=== PATIENT | male | born 1990 | race Caucasian/White ===

== ENCOUNTER → 2018-10-13 | Outpatient (CLI) | payer OTHER ==
--- NOTE | 2018-10-13 17:10 | RADIOLOGY IMAGING REPORT ---
FACILITY: [facility] PATIENT NAME: Willis Tirado : 1990 MR: [id number] V: [id number] EXAM DATE: ORDERING PHYSICIAN: FIDELIA ANTONIO TECHNOLOGIST: Location: [facility] [place] Patient: Willis Tirado : 1990 Visit/Account:[id number] Date of Sevice: 10/13/2018 THYROID HISTORY: Left thyroid nodule COMPARISON: None. FINDINGS: SIZE: Right lobe: 4.8 x 1.6 x 1.7 cm Left lobe: 5.1 x 1.6 x 1.6 cm Isthmus: 5 mm PARENCHYMA: Homogeneous. NODULES: Right lobe: * None discrete. Left lobe: * There is a well-circumscribed hypoechoic nodule in the mid to inferior left lobe measuring 1.3 x 0 .9 x 2 cm. There suggestion of tiny calcifications within this nodule Isthmus: * None discrete. VASCULARITY: Within normal limits. ADDITIONAL FINDINGS: None. IMPRESSION: There is a 2 cm hypoechoic nodule within the inferior left lobe which appears to contain punctate emilia cifications. Ultrasound-guided fine-needle aspiration is recommended REFERENCE: 2015 [place] [employer] Management Guidelines for Adult Patients with Thyroid Nodules and D ifferentiated Thyroid Cancer: The [place] [employer] Guidelines Task Force on Thyroid Nodul es and Differentiated Thyroid Cancer. SONOGRAPHIC PATTERNS: * Benign: Purely cystic nodules (no solid component); estimated risk of malignancy <1 percent; no bi opsy recommended. * Very Low Suspicion: Spongiform or partially cystic nodules without any of the sonographic features described in low, intermediate, or high suspicion patterns; estimated risk of malignancy <3 percent; consider FNA at > 2 cm (Observation without FNA is also a reasonable option). * Low Suspicion: Isoechoic or hyperechoic solid nodule, or partially cystic nodule with eccentric so lid areas, without microcalcification, irregular margin or ETE (extra-thyroidal extension), or taller than wide shape; estimated risk of malignancy 5-10 percent; recommend FNA at >1.5 cm. * Intermediate Suspicion: Hypoechoic solid nodule with smooth margins without microcalcifications, E TE (extra-thyroidal extension), or taller than wide shape; estimated risk of malignancy 10-20 percent ; recommend FNA at > 1 cm. * High Suspicion: Solid hypoechoic nodule or solid hypoechoic component of a partially cystic nodule with one or more of the following features: irregular margins (infiltrative, microlobulated), microc alcifications, taller than wide shape, rim calcifications with small extrusive soft tissue component, evidence of ETE (extra-thyroidal extension); estimated risk of malignancy >70-90 percent; recommend FNA at > 1 cm. NOTES: * Although a sonographically suspicious subcentimeter thyroid nodule without evidence of extrathyroi vee extension or sonographically suspicious lymph nodes may be observed with close sonographic follow -up rather than pursuing immediate FNA, patient age and preference may modify decision-making. A > 50% interval increase in nodule volume and/or development of new suspicious sonographic features are felt to be a valid reasons for potential re-aspiration of a nodule previously shown to have benig n FNA cytology. Report Dictated By: Suzie Cassidy MD at 10/13/2018 5:04 PM Report E-Signed By: Suzie Cassidy MD at 10/13/2018 5:05 PM WSN:[email or web address]
== END ==
LOC: US 16:00
PROVIDERS: ATTEND Family Medicine
DX: E04.1 Nontoxic single thyroid nodule (principal)
CPT/HCPCS: 76536

== ENCOUNTER 2018-10-25 15:47 | Outpatient (RCR) | payer OTHER ==
[2018-10-25 16:12] LABS: INR 0.98
--- NOTE | 2018-10-26 17:35 | RADIOLOGY IMAGING REPORT ---
FACILITY: [facility] - [place] PATIENT NAME: Willis Tirado : 1990 MR: [id number] V: [id number] EXAM DATE: [id number] ORDERING PHYSICIAN: FIDELIA ANTONIO TECHNOLOGIST: Location: [facility] Patient: Willis Tirado : 1990 Visit/Account:[id number] Date of Sevice: 10/26/2018 Exam type: US BIOPSY LOC/INJ THYROID History: Left thyroid nodule Comparison: Thyroid ultrasound October 13, 2018. Findings: Informed consent was obtained including potential risks and complications such as bleeding and infect ion. The patient's left side of his neck was prepped and draped usual sterile fashion. Local anesth esia was accomplished with 1% lidocaine. Under sonographic guidance four 25-gauge FNA biopsies were obtained through the heterogeneous mass in the left-sided thyroid gland. Samples were given to the p athology technologist for processing. The procedure was accomplished without apparent complication. IMPRESSION: 1. Successful sonographically guided FNA biopsy of the left thyroid mass Report Dictated By: Suzie Cassidy MD at 10/26/2018 5:29 PM Report E-Signed By: Suzie Cassidy MD at 10/26/2018 5:31 PM WSN:[email or web address]
== END 2018-10-26 18:00 | disposition home or self-care (01) ==
LOC: US 15:47 → EDSTATUS 10-26 15:43 → US 10-26 18:00
PROVIDERS: ATTEND Family Medicine
DX: E04.9 Nontoxic goiter, unspecified (principal)
CPT/HCPCS: 10005; 36415; 76942; 84443; 85610; 88104; 88172